=== PATIENT | female | born 1985 | race African-American/Black ===

== ENCOUNTER 2017-06-26 17:33 | Emergency (ER) | payer MEDICARE, OTHER ==
[~2017-06-26 17:33] MED LIST: BACTRIM DS TABL1 TA1 PO; CLINDAMYCIN HC300 MG PO; DARVOCET-N 1001 TAB PO; IBUPROFEN PO; IBUPROFEN800 MG PO; LORTAB 5/500 TA1 TA2 PO; NAPROSYN-EC500 M1 PO; NO MEDICATIONS; PEN-VEE K PO; PERCOCET 5-3251 TAB PO; TYLENOL #3 PO
[2017-06-26] MEDS ORDERED: METFORMIN PO (17:34)
[2017-06-26] MEDS ORDERED: LISINOPRIL PO (17:34)
[2017-06-26] MEDS ORDERED: SEROQUEL PO (17:35)
== END 2017-06-26 19:12 | disposition home or self-care (01) ==
LOC: SED 17:33
DX: N76.0 Acute vaginitis (principal); E11.9 Type 2 diabetes mellitus without complications; I10 Essential (primary) hypertension; F17.210 Nicotine dependence, cigarettes, uncomplicated
CPT/HCPCS: 56405; 82947; 99283